=== PATIENT | male | born 1980 | race Caucasian/White ===

== ENCOUNTER 2016-06-18 11:15 | Emergency (ER) | payer OTHER ==
[2016-06-18 11:30] VITALS: BP 144/99; PULSE 121; TEMP 98.2; BMI 36.8
[2016-06-18] MEDS ORDERED: IBUPROFEN 600 MG TABLET (FP) PO ONE (12:35)
[2016-06-18 12:44] LABS: BASOPHIL 0.6 % (0-2.0); MCH 28.2 pg (25.7-33.7); MCHC 32.5 g/dl (32.0-35.9); MEAN CELL VOLUME 86.9 fl (80-96); MEAN PLT VOLUME 8.2 fl (7.5-11.1); NEUTROPHILS 57.9 % (42.8-82.8); PLATELET COUNT 265 K/MM3 (134-434); RDW 13.3 % (11.9-15.9); WHITE BLOOD COUNT 12.9 K/mm3 (4.0-10.0)
--- NOTE | 2016-06-18 12:45 | PDOC ---
History of Present Illness - General Chief Complaint: Pain Stated Complaint: HEADACHES, BODY ACHES Time Seen by Provider: 06/18/16 11:37 History Source: Patient Exam Limitations: No Limitations - History of Present Illness Initial Comments: 06/18/16 12:38 36 yr male with history of psoriasis presents with intermittent body aches, fevers, dry cough. Pt denies foreign travel, no history of surgery recent URI or abd pain. Pt has intermittent sore throats. 06/18/16 12:45 Timing/Duration: 1 week Severity: mild Past History - Past Medical History Allergies/Adverse Reactions: Allergies Allergy/AdvReac Type Severity Reaction Status Date / Time azithromycin [From Zithromax] Allergy Intermediate TROUBLE Verified 06/18/16 11: 30 BREATHING. Home Medications: Ambulatory Orders Penicillin V Potassium [Pen Vee K -] 500 mg PO BID #20 tablet 06/18/16 Other medical history: PSORIASIS - Surgical History Abdominal Surgery: Yes Appendectomy: Yes - Psycho/Social/Smoking Cessation Hx Anxiety: No Suicidal Ideation: No Smoking Status: Yes Smoking History: Never smoked Have you smoked in the past 12 months: No Number of Cigarettes Smoked Daily: 3 If you are a former smoker, when did you quit?: 2012 Information on smoking cessation initiated: No Hx Alcohol Use: No Substance Use Type: Alcohol Review of Systems - Review of Systems Able to Perform ROS?: Yes Is the patient limited Albanian proficient: No Constitutional: Yes: Symptoms Reported HEENTM: Yes: Symptoms Reported Respiratory: Yes: Symptoms reported *Physical Exam - Vital Signs Last Vital Signs Temp Pulse Resp BP Pulse Ox 98.2 F 121 H 18 144/99 98 06/18/16 11:26 06/18/16 11:26 06/18/16 11:26 06/18/16 11:26 06/18/16 11:26 - Physical Exam General Appearance: Yes: Nourished, Appropriately Dressed HEENT: positive: EOMI, FINA, Pharyngeal Erythema Neck: positive: Supple Respiratory/Chest: positive: Lungs Clear, Normal Breath Sounds. negative: Chest Tender Cardiovascular: positive: Regular Rhythm, Regular Rate Gastrointestinal/Abdominal: positive: Normal Bowel Sounds, Soft Musculoskeletal: positive: Normal Inspection Extremity: positive: Normal Capillary Refill, Normal Inspection, Normal Range of Motion Integumentary: positive: Normal Color, Dry, Warm Neurologic: positive: Fully Oriented, Alert, Normal Mood/Affect, Normal Response , Motor Strength 07/06 ED Treatment Course - LABORATORY CBC & Chemistry Diagram: 06/18/16 12:25 06/18/16 12:25 - RADIOLOGY Radiology Studies Ordered: Category Date Time Status CHEST PA & LAT [RAD] Stat Radiology 06/18/16 11:52 Completed Medical Decision Making - Medical Decision Making 06/18/16 12:51 cc: sore throat, fever, body aches on and off for 2 weeks will check strep, labs, CXR *DC/Admit/Observation/Transfer Diagnosis at time of Disposition: Strep pharyngitis - Prescriptions Prescriptions: Penicillin V Potassium [Pen Vee K -] 500 mg PO BID #20 tablet - Referrals Referrals: J Luis Barker MD [Primary Care Provider] - - Patient Instructions Additional Instructions: gargle with warm salt water 4-5 times a day take the PEnicillin as directed for 10 days take motrin as needed for fever or pain follow with your doctor to follow up on elevated liver enzymes throw out your toothbrush after treatment avoid sharing anything that can contain saliva, as this is how you spread strep
[2016-06-18] MEDS ORDERED: IBUPROFEN 400 MG TABLET (FP) PO ONE (12:48)
[2016-06-18 12:57] LABS: ALBUMIN 4.1 g/dl (3.4-5.0); ANION GAP 9 (8-16); BILIRUBIN,TOTAL 0.7 mg/dL (0.2-1.0); CALCIUM 9.7 mg/dL (8.5-10.1); CO2 28 mmol/L (21-32); COCKROFT - GAULT 118.43; CREATININE 1.3 mg/dL (0.7-1.3); GLUCOSE,RANDOM 118 mg/dL (74-106); SGOT/AST 87 U/L (15-37); SGPT/ALT 92 U/L (12-78); TOT PROT 9.1 g/dl (6.4-8.2)
[2016-06-18 12:58] LABS: ALK PHOS 67 U/L (45-117)
== END 2016-06-18 13:07 | disposition home or self-care (01) ==
LOC: JERFT 11:15
DX: J02.0 Streptococcal pharyngitis (principal); B95.0 Streptococcus, group A, as the cause of diseases classified elsewhere
CPT/HCPCS: 36415; 71020-TC; 80053; 85025; 87070; 87077; 87430; 99282-25

== ENCOUNTER 2016-06-18 20:22 | Emergency (ER) | payer OTHER ==
[2016-06-18 20:40] VITALS: BP 125/78; PULSE 105; TEMP 98.2; BMI 37.0
[2016-06-18] MEDS ORDERED: predniSONE 20 MG TABLET (UD) PO ONE (21:30)
[2016-06-18] MEDS ORDERED: RANITIDINE HCL 150 MG TABLET (FP) PO ONE (21:30)
[2016-06-18] MEDS ORDERED: diphenhydrAMINE HCL 50 MG CAPSULE PO ONE (21:30)
--- NOTE | 2016-06-18 21:30 | PDOC ---
History of Present Illness - General Chief Complaint: Allergic Reaction Stated Complaint: ALLERGIC REACTION Time Seen by Provider: 06/18/16 21:01 History Source: Patient - History of Present Illness Timing/Duration: 1-3 hours Associated Symptoms: denies: nausea/vomiting, shortness of breath Past History - Past Medical History Allergies/Adverse Reactions: Allergies Allergy/AdvReac Type Severity Reaction Status Date / Time azithromycin [From Zithromax] Allergy Intermediate TROUBLE Verified 06/18/16 11: 30 BREATHING. Penicillins Allergy Hives Verified 06/18/16 21:53 Home Medications: Ambulatory Orders NK [No Known Home Medication] 06/19/16 Other medical history: psoriasis - Surgical History Abdominal Surgery: Yes Appendectomy: Yes - Immunization History Immunization Up to Date: Yes - Psycho/Social/Smoking Cessation Hx Anxiety: No Suicidal Ideation: No Smoking Status: Yes Smoking History: Former smoker Have you smoked in the past 12 months: No Number of Cigarettes Smoked Daily: 3 If you are a former smoker, when did you quit?: 2009 Information on smoking cessation initiated: No Hx Alcohol Use: No Drug/Substance Use Hx: No Substance Use Type: Alcohol Review of Systems - Review of Systems Constitutional: No: Chills, Fever HEENTM: No: Throat Pain, Throat Swelling Respiratory: No: Shortness of Breath, Stridor, Wheezing Cardiac (ROS): No: Chest Pain *Physical Exam - Vital Signs Last Vital Signs Temp Pulse Resp BP Pulse Ox 98.2 F 105 H 20 125/78 97 06/18/16 20:34 06/18/16 20:34 06/18/16 20:34 06/18/16 20:34 06/18/16 20:34 - Physical Exam General Appearance: Yes: Appropriately Dressed. No: Apparent Distress HEENT: positive: Normal Voice, Other (no tongue swelling). negative: Scleral Icterus (R), Scleral Icterus (L) Neck: positive: Supple. negative: Lymphadenopathy (R), Lymphadenopathy (L) Respiratory/Chest: positive: Lungs Clear, Normal Breath Sounds. negative: Respiratory Distress, Stridor, Wheezing Cardiovascular: positive: Regular Rate, S1, S2 Extremity: positive: Normal Inspection Integumentary: positive: Dry, Warm Neurologic: positive: Fully Oriented, Alert, Normal Mood/Affect Medical Decision Making - Medical Decision Making 06/18/16 21:22 36 yo male, allergic to penicillin and azithromycin w/ anaphylaxis to penicillin in the past per pt, seen in ED several hrs ago and dx w/ strep throat , given 1 dose of penicillin in ED and sent home with rx for same and now presents with generalized pruritic rash that started 1-2 hours ago. Also complaining of his chest feeling "heavy" and that his voice sounds different as per his family. No tongue swelling, stridor, wheezing or shortness of breath. Patient states that he thought azithromycin was the same thing as penicillin and only reported azithromycin allergy to triage staff on earlier visit. Also did not tell ED provider about his penicillin allergy, specifically. Patient states he did fill the prescription for penicillin but did not start taking medications at home. Patient well-appearing and stable in ED with pinpoint, erythematous, papular rash diffusely. Oropharynx clear with no tongue swelling , stridor, wheezing. Will give allergy cocktail and transfer to main ED for several hours of observation given history. Alerted nursing staff to update pt' s records to reflect penicillin allergy *DC/Admit/Observation/Transfer Diagnosis at time of Disposition: Allergic reaction - Discharge Dispostion Disposition: HOME - Referrals Referrals: J Luis Barker MD [Primary Care Provider] - - Patient Instructions Additional Instructions: Please follow up with your PMD within the next 48 hours and if there is any change otherwise in symptoms, please return immediately to the ED.
[2016-06-18] MEDS ORDERED: predniSONE 20 MG TABLET (UD) ONE (21:44)
[2016-06-18] MEDS ORDERED: diphenhydrAMINE HCL 25 MG CAPSULE (FP) PO ONE (21:44)
[2016-06-18] MEDS ORDERED: RANITIDINE HCL 150 MG TABLET (FP) ONE (21:45)
--- NOTE | 2016-06-19 01:01 | PDOC ---
History of Present Illness - General Chief Complaint: Allergic Reaction Stated Complaint: ALLERGIC REACTION Time Seen by Provider: 06/18/16 21:01 Past History - Past Medical History Allergies/Adverse Reactions: Allergies Allergy/AdvReac Type Severity Reaction Status Date / Time azithromycin [From Zithromax] Allergy Intermediate TROUBLE Verified 06/18/16 11: 30 BREATHING. Penicillins Allergy Hives Verified 06/18/16 21:53 Home Medications: Ambulatory Orders Clindamycin HCl 300 mg PO TID #30 capsule 06/19/16 Famotidine [Pepcid] 40 mg PO DAILY #14 tablet 06/19/16 Prednisone 50 mg PO DAILY #25 tablet 06/19/16 Other medical history: psoriasis - Surgical History Abdominal Surgery: Yes Appendectomy: Yes - Immunization History Immunization Up to Date: Yes - Psycho/Social/Smoking Cessation Hx Anxiety: No Suicidal Ideation: No Smoking Status: Yes Smoking History: Former smoker Have you smoked in the past 12 months: No Number of Cigarettes Smoked Daily: 3 If you are a former smoker, when did you quit?: 2009 Information on smoking cessation initiated: No Hx Alcohol Use: No Drug/Substance Use Hx: No Substance Use Type: Alcohol *Physical Exam - Vital Signs Last Vital Signs Temp Pulse Resp BP Pulse Ox 98.2 F 105 H 20 125/78 97 06/18/16 20:34 06/18/16 20:34 06/18/16 20:34 06/18/16 20:34 06/18/16 20:34 ED Treatment Course - Medications Given in the ED: ED Medications Discontinued Medications Generic Name Dose Route Start Last Admin Trade Name Georgesq PRN Reason Stop Dose Admin Diphenhydramine HCl 50 mg 06/18/16 21:30 06/18/16 21:45 Benadryl - PO 06/18/16 21:31 50 mg ONCE ONE Administration Prednisone 60 mg 06/18/16 21:30 06/18/16 21:45 Deltasone - PO 06/18/16 21:31 60 mg ONCE ONE Administration Ranitidine HCl 150 mg 06/18/16 21:30 06/18/16 21:45 Zantac - PO 06/18/16 21:31 150 mg ONCE ONE Administration Medical Decision Making - Medical Decision Making 06/19/16 00:52 The patient is seen by the PA who evaluates him for allergic reaction to penicillin today. He has no current symptoms at this time. He has been observed for appreciable amount of time; will change antibiotic for his new dx of strep pharyngitis. Also will give zantac and prednisone. Instructed to follow up with the PMD within the next 48 hours. He will be encouraged as well to have follow up with bus repair supervisor. *DC/Admit/Observation/Transfer Diagnosis at time of Disposition: Allergic reaction Qualifiers: Encounter type: initial encounter Qualified Code(s): T78.40XA - Allergy, unspecified, initial encounter - Discharge Dispostion Disposition: HOME Condition at time of disposition: Good Admit: No Decision to Admit order Date/Time: 06/19/16 01:02 - Prescriptions Prescriptions: Clindamycin HCl 300 mg PO TID #30 capsule Famotidine [Pepcid] 40 mg PO DAILY #14 tablet Prednisone 50 mg PO DAILY #25 tablet - Patient Instructions Additional Instructions: Please follow up with your PMD within the next 48 hours and if there is any change otherwise in symptoms, please return immediately to the ED.
== END 2016-06-19 01:39 | disposition home or self-care (01) ==
LOC: JER 20:22 → JERFT 20:22 → JER 06-19 01:39
DX: L27.0 Generalized skin eruption due to drugs and medicaments taken internally (principal); T36.0X5A Adverse effect of penicillins, initial encounter; Y92.038 Other place in apartment as the place of occurrence of the external cause
CPT/HCPCS: 99282-25

== ENCOUNTER 2020-03-30 21:24 | Emergency (ER) | payer OTHER ==
[2020-03-30 22:18] VITALS: BP 129/85; PULSE 88; TEMP 99.4; BMI 39.5
[2020-03-30] MEDS ORDERED: ACETAMINOPHEN 1000 MG/100 ML VIAL (NON FORMULARY) IVPB ONE (23:07)
[2020-03-30] MEDS ORDERED: SODIUM CHLORIDE 1,000 ML IV STA (23:07)
[2020-03-30] MEDS ORDERED: METOCLOPRAMIDE HCL INJECTION 10 MG/2 ML VIAL IVPB ONE (23:07)
[2020-03-30] MEDS ORDERED: ACETAMINOPHEN INJECTION 100 ML IVPB ONE (23:40)
[2020-03-30] MEDS ORDERED: METOCLOPRAMIDE HCL INJECTION 10 MG/2 ML VIAL ONE (23:40)
[2020-03-30 23:48] LABS: PH,URINE 5.5 (5.0-8.0); URINE APPEARANCE CLEAR; URINE BILIRUBIN NEGATIVE (NEGATIVE); URINE COLOR YELLOW; URINE GLUCOSE (UA) NEGATIVE (NEGATIVE); URINE KETONE NEGATIVE (NEGATIVE); URINE LEUK ESTERASE NEGATIVE (NEGATIVE); URINE NITRITE NEGATIVE (NEGATIVE); URINE PROTEIN NEGATIVE (NEGATIVE); URINE UROBILINOGEN 0.2 mg/dL (0.2-1.0)
[2020-03-30 23:52] LABS: EOS % 3.4 % (0-4.5); HEMATOCRIT 45.5 % (35.4-49); HEMOGLOBIN 16.1 GM/dL (11.7-16.9); LYMPH % 34.7 % (8-40); MCH 30.9 pg (25.7-33.7); MCHC 35.4 g/dl (32.0-35.9); MEAN CELL VOLUME 87.3 fl (80-96); MEAN PLT VOLUME 9.2 fl (7.5-11.1); MONO % 7.5 % (3.8-10.2); NEUT % 53.4 % (42.8-82.8); PLATELET COUNT 234 K/MM3 (134-434); RBC 5.21 M/mm3 (4.00-5.60); RDW 13.4 % (11.9-15.9); WHITE BLOOD COUNT 8.5 K/mm3 (4.0-10.0)
[2020-03-30 23:57] LABS: INR 0.97 (0.83-1.09); PROTHROMBIN TIME (PATIENT) 11.8 SEC (9.7-13.0)
[2020-03-31 00:06] LABS: CHLORIDE 105 mmol/L (98-107); SODIUM 139 mmol/L (136-145)
[2020-03-31 00:08] LABS: ALBUMIN 3.9 g/dl (3.4-5.0); ANION GAP 4 MMOL/L (8-16); CO2 29 mmol/L (21-32)
[2020-03-31 00:09] LABS: GLUCOSE,RANDOM 130 mg/dL (74-106); LIPASE 92 U/L (73-393)
[2020-03-31 00:13] LABS: BILIRUBIN,TOTAL 0.6 mg/dL (0.2-1)
[2020-03-31 00:14] LABS: ALK PHOS 76 U/L (45-117)
[2020-03-31 02:21] LABS: BLOOD UREA NITROGEN 14.8 mg/dL (7-18); TOT PROT 7.6 g/dl (6.4-8.2)
== END 2020-03-31 04:01 ==
LOC: JER 21:24
PROC: 3E033NZ Introduction of Analgesics, Hypnotics, Sedatives into Peripheral Vein, Percutaneous Approach (ICD-10-PCS; principal; 2020-03-30)
PROC: 3E033GC Introduction of Other Therapeutic Substance into Peripheral Vein, Percutaneous Approach (ICD-10-PCS; 2020-03-30)
PROC: 3E0337Z Introduction of Electrolytic and Water Balance Substance into Peripheral Vein, Percutaneous Approach (ICD-10-PCS; 2020-03-30)
DX: R07.9 Chest pain, unspecified (principal)
CPT/HCPCS: 36415; 70450-TC; 71046-TC-FY; 80053; 81003; 82550; 82553; 83690; 84484; 85025; 85610; 93005; 93010; 99285-25; C9803; J0131; U0003

== ENCOUNTER 2022-08-11 23:52 | Inpatient (IN) | payer OTHER ==
[2022-08-12 00:20] VITALS: BMI 26.9
[2022-08-12] MEDS ORDERED: IBUPROFEN 400 MG TABLET (FP) PO PRN (00:49)
[2022-08-12] MEDS ORDERED: BENZONATATE 200 MG CAPSULE PO PRN (00:49)
[2022-08-12] MEDS ORDERED: LOPERAMIDE HCL 2 MG CAPSULE PO PRN (00:49)
[2022-08-12] MEDS ORDERED: IBUPROFEN 600 MG TABLET (FP) PO PRN (00:49)
[2022-08-12] MEDS ORDERED: NICOTINE 10 MG CARTRIDGE (INHALER) IH PRN (00:49)
[2022-08-12] MEDS ORDERED: guaiFENesin 600 MG TABLET.ER (FP) PO PRN (00:49)
[2022-08-12] MEDS ORDERED: hydrOXYzine PAMOATE 25 MG CAPSULE (FP) PO PRN (00:49)
[2022-08-12] MEDS ORDERED: ONDANSETRON *ODT* 4 MG TABLET SL PRN (00:49)
[2022-08-12] MEDS ORDERED: NICOTINE POLACRILEX 2 MG GUM BUC PRN (00:49)
[2022-08-12] MEDS ORDERED: ACETAMINOPHEN 325 MG TABLET (FP) PO PRN (00:49)
[2022-08-12] MEDS ORDERED: MAG HYDROX/AL HYDROX/SIMETH 30 ML UNIT-DOSE CUP PO PRN (00:49)
[2022-08-12] MEDS ORDERED: POLYETHYLENE GLYCOL (HEALTHYLAX) 3350 17 GM PACKET PO PRN (00:49)
[2022-08-12] MEDS ORDERED: BENZOCAINE/MENTHOL (CHLORASEPTIC ) LOZENGE MM PRN (00:49)
[2022-08-12] MEDS ORDERED: MAGNESIUM HYDROX 2400MG/30ML ORAL SUSPENSION 30 ML CUP PO PRN (00:49)
[2022-08-12] MEDS ORDERED: BISMUTH SUBSALICYLATE 524 MG/30 ML PO PRN (00:49)
[2022-08-12] MEDS ORDERED: DICYCLOMINE HCL 10 MG CAPSULE PO PRN (00:49)
[2022-08-12] MEDS ORDERED: P-EPHED 60MG/TRIPROLIDI 2.5MG TABLET PO PRN (00:49)
[2022-08-12] MEDS ORDERED: diazePAM 5 MG TABLET PO ONE (00:51)
[2022-08-12] MEDS: diazePAM 5 MG TABLET PO SCH ×4 (05:55→22:28)
[2022-08-12] MEDS: METHOCARBAMOL 500 MG TABLET PO PRN ×2 (10:47→22:28)
[2022-08-12] MEDS: PRENATAL VITAMINS W/ FOLIC ACID TABLET (FP) PO SCH (10:47)
[2022-08-12] MEDS: THIAMINE HCL 100 MG TABLET (FP) PO SCH (22:29)
[2022-08-12] MEDS: MELATONIN 5 MG TABLETS PO PRN (22:29)
[2022-08-13] MEDS: diazePAM 5 MG TABLET PO SCH ×3 (05:36→22:22)
[2022-08-13 10:22] LABS: HEMATOCRIT 43.1 % (35.4-49); HEMOGLOBIN 14.4 GM/dL (11.7-16.9); MCH 29.2 pg (25.7-33.7); MCHC 33.6 g/dl (32.0-35.9); MEAN CELL VOLUME 87.1 fl (80-96); MEAN PLT VOLUME 7.7 fl (7.5-11.1); PLATELET COUNT 193 10^3/uL (134-434); RBC 4.94 M/mm3 (4.00-5.60); RDW 14.9 % (11.9-15.9); WHITE BLOOD COUNT 8.8 K/mm3 (4.0-10.0)
[2022-08-13 10:31] LABS: BLOOD UREA NITROGEN 11.3 mg/dL (7-18); CALCIUM 8.8 mg/dL (8.5-10.1)
[2022-08-13 10:32] LABS: ALBUMIN 3.2 g/dl (3.4-5.0)
[2022-08-13] MEDS: PRENATAL VITAMINS W/ FOLIC ACID TABLET (FP) PO SCH (10:33)
[2022-08-13 10:34] LABS: CREATININE 0.8 mg/dL (0.55-1.3)
[2022-08-13] MEDS: diazePAM 5 MG TABLET PO PRN (10:34)
[2022-08-13 10:36] LABS: BILIRUBIN,TOTAL 1.2 mg/dL (0.2-1); TOT PROT 6.6 g/dl (6.4-8.2)
[2022-08-13] MEDS: THIAMINE HCL 100 MG TABLET (FP) PO SCH (22:22)
[2022-08-13] MEDS: MELATONIN 5 MG TABLETS PO PRN (22:23)
[2022-08-14] MEDS: diazePAM 5 MG TABLET PO SCH ×2 (05:34→17:21)
[2022-08-14] MEDS: PRENATAL VITAMINS W/ FOLIC ACID TABLET (FP) PO SCH (10:17)
[2022-08-14] MEDS: diazePAM 5 MG TABLET PO PRN ×2 (10:18→21:39)
[2022-08-14] MEDS: MELATONIN 5 MG TABLETS PO PRN (21:36)
[2022-08-14] MEDS: THIAMINE HCL 100 MG TABLET (FP) PO SCH (21:39)
[2022-08-14] MEDS: METHOCARBAMOL 500 MG TABLET PO PRN (21:39)
[2022-08-14] MEDS ORDERED: LIDOCAINE 5% TOPICAL PATCH TP ONE (23:15)
[2022-08-15] MEDS ORDERED: diazePAM 5 MG TABLET PO ONE (06:00)
[2022-08-15 09:26] VITALS: BP 111/54; PULSE 96; RESP 17; TEMP 97.3
[2022-08-15] MEDS: PRENATAL VITAMINS W/ FOLIC ACID TABLET (FP) PO SCH (10:41)
[2022-08-15] MEDS ORDERED: LIDOCAINE PATCH REMOVAL MC ONE (11:15)
== END 2022-08-15 10:30 | disposition home or self-care (01) | DRG 351 ==
LOC: YASAS 23:52 → Y6N 08-12 01:11
PROVIDERS: ADMIT Allergy & Immunology; ATTEND Surgery
PROC: HZ2ZZZZ Detoxification Services for Substance Abuse Treatment (ICD-10-PCS; principal; 2022-08-12)
DX: T14.90XA Injury, unspecified, initial encounter (principal); F10.230 Alcohol dependence with withdrawal, uncomplicated; F14.20 Cocaine dependence, uncomplicated; F17.210 Nicotine dependence, cigarettes, uncomplicated; T14.8XXA Other injury of unspecified body region, initial encounter; V49.9XXA Car occupant (driver) (passenger) injured in unspecified traffic accident, initial encounter; Y92.414 Local residential or business street as the place of occurrence of the external cause
CPT/HCPCS: 36415; 80053; 85027; 86780; 87635

== ENCOUNTER 2022-09-11 11:45 | Inpatient (IN) | payer OTHER ==
[2022-09-11 12:05] VITALS: BMI 26.4
[2022-09-11] MEDS ORDERED: ONDANSETRON *ODT* 4 MG TABLET SL PRN (13:28)
[2022-09-11] MEDS ORDERED: BENZOCAINE/MENTHOL (CHLORASEPTIC ) LOZENGE MM PRN (13:28)
[2022-09-11] MEDS ORDERED: POLYETHYLENE GLYCOL (HEALTHYLAX) 3350 17 GM PACKET PO PRN (13:28)
[2022-09-11] MEDS ORDERED: MAGNESIUM HYDROX 2400MG/30ML ORAL SUSPENSION 30 ML CUP PO PRN (13:28)
[2022-09-11] MEDS ORDERED: BISMUTH SUBSALICYLATE 524 MG/30 ML PO PRN (13:28)
[2022-09-11] MEDS ORDERED: MAG HYDROX/AL HYDROX/SIMETH 30 ML UNIT-DOSE CUP PO PRN (13:28)
[2022-09-11] MEDS ORDERED: IBUPROFEN 400 MG TABLET (FP) PO PRN (13:28)
[2022-09-11] MEDS ORDERED: guaiFENesin 600 MG TABLET.ER (FP) PO PRN (13:28)
[2022-09-11] MEDS ORDERED: NALOXONE HCL 0.4 MG/ML VIAL IM PRN (13:28)
[2022-09-11] MEDS ORDERED: NALOXONE HCL (KLOXXADO) 8 MG SPRAY NS PRN (13:28)
[2022-09-11] MEDS ORDERED: ACETAMINOPHEN 325 MG TABLET (FP) PO PRN (13:28)
[2022-09-11] MEDS ORDERED: DICYCLOMINE HCL 10 MG CAPSULE PO PRN (13:28)
[2022-09-11] MEDS ORDERED: IBUPROFEN 600 MG TABLET (FP) PO PRN (13:28)
[2022-09-11] MEDS ORDERED: METHOCARBAMOL 500 MG TABLET PO PRN (13:28)
[2022-09-11] MEDS ORDERED: LOPERAMIDE HCL 2 MG CAPSULE PO PRN (13:28)
[2022-09-11] MEDS ORDERED: BENZONATATE 200 MG CAPSULE PO PRN (13:28)
[2022-09-11] MEDS ORDERED: NICOTINE POLACRILEX 2 MG GUM BUC PRN (13:28)
[2022-09-11] MEDS ORDERED: PRENATAL VITAMINS W/ FOLIC ACID TABLET (FP) PO SCH (13:30)
[2022-09-11] MEDS ORDERED: chlordiazePOXIDE HCL 25 MG CAPSULE PO PRN (13:33)
[2022-09-11] MEDS ORDERED: PRENATAL VITAMINS W/ FOLIC ACID TABLET (FP) PO ONE (14:25)
[2022-09-11] MEDS ORDERED: chlordiazePOXIDE HCL 25 MG CAPSULE PO SCH (17:00)
[2022-09-11 17:31] VITALS: BP 132/84; PULSE 98; RESP 18; TEMP 97.1
[2022-09-11] MEDS ORDERED: MELATONIN 5 MG TABLETS PO SCH (22:00)
[2022-09-11] MEDS ORDERED: THIAMINE HCL 100 MG TABLET (FP) PO SCH (22:00)
[2022-09-12] MEDS ORDERED: NICOTINE 14 MG/24 HOURS TOPICAL PATCH TD SCH (10:00)
[2022-09-13] MEDS ORDERED: chlordiazePOXIDE HCL 25 MG CAPSULE PO SCH (05:00)
[2022-09-14] MEDS ORDERED: chlordiazePOXIDE HCL 10 MG CAPSULE PO PRN
[2022-09-14] MEDS ORDERED: chlordiazePOXIDE HCL 10 MG CAPSULE PO SCH (05:00)
[2022-09-15] MEDS ORDERED: chlordiazePOXIDE HCL 10 MG CAPSULE PO SCH (05:00)
[2022-09-16] MEDS ORDERED: chlordiazePOXIDE HCL 10 MG CAPSULE PO ONE (05:00)
== END 2022-09-11 16:35 | disposition left against medical advice (07) | DRG 770 ==
LOC: YASAS 11:45 → Y6N 14:06
PROVIDERS: ADMIT Allergy & Immunology; ATTEND Surgery
PROC: HZ2ZZZZ Detoxification Services for Substance Abuse Treatment (ICD-10-PCS; principal; 2022-09-11)
DX: F10.230 Alcohol dependence with withdrawal, uncomplicated (principal); F17.210 Nicotine dependence, cigarettes, uncomplicated; L40.9 Psoriasis, unspecified; Z88.0 Allergy status to penicillin; Z88.1 Allergy status to other antibiotic agents
CPT/HCPCS: 87635; 87811

== ENCOUNTER 2022-10-08 22:04 | Emergency (ER) | payer OTHER ==
[2022-10-08 22:11] VITALS: BMI 27.3
[2022-10-08] MEDS ORDERED: PANTOPRAZOLE SODIUM 40 MG VIAL IVPUSH ONE (23:02)
[2022-10-08] MEDS ORDERED: ACETAMINOPHEN 1000 MG/100 ML BAG IVPB ONE (23:02)
[2022-10-08] MEDS ORDERED: PANTOPRAZOLE SODIUM 40 MG VIAL ONE (23:06)
[2022-10-08] MEDS ORDERED: ACETAMINOPHEN INJECTION 100 ML IVPB ONE (23:06)
[2022-10-08 23:12] LABS: EOS % 3.8 % (0-4.5); HEMATOCRIT 44.8 % (35.4-49); HEMOGLOBIN 14.7 GM/dL (11.7-16.9); LYMPH % 39.9 % (8-40); MCH 28.6 pg (25.7-33.7); MCHC 32.8 g/dl (32.0-35.9); MEAN PLT VOLUME 7.8 fl (7.5-11.1); MONO % 6.3 % (3.8-10.2); PLATELET COUNT 263 10^3/uL (134-434); RBC 5.15 M/mm3 (4.00-5.60); RDW 14.2 % (11.9-15.9)
[2022-10-08 23:19] LABS: PH,URINE 6.5 (5.0-8.0); URINE APPEARANCE CLEAR; URINE BILIRUBIN NEGATIVE (NEGATIVE); URINE COLOR YELLOW; URINE GLUCOSE (UA) NEGATIVE (NEGATIVE); URINE KETONE NEGATIVE (NEGATIVE); URINE LEUK ESTERASE NEGATIVE (NEGATIVE); URINE NITRITE NEGATIVE (NEGATIVE); URINE PROTEIN NEGATIVE (NEGATIVE)
[2022-10-08 23:19] LABS: PROTHROMBIN TIME (PATIENT) 11.6 SEC (9.7-13.0)
[2022-10-08 23:35] LABS: POTASSIUM 3.7 mmol/L (3.5-5.1)
[2022-10-08 23:36] LABS: CALCIUM 8.8 mg/dL (8.5-10.1)
[2022-10-08 23:37] LABS: ALBUMIN 3.7 g/dl (3.4-5.0); BLOOD UREA NITROGEN 14.2 mg/dL (7-18); MAGNESIUM 2.1 mg/dL (1.8-2.4)
[2022-10-08 23:40] LABS: CREATININE 0.9 mg/dL (0.55-1.3)
[2022-10-08 23:42] LABS: BILIRUBIN,TOTAL 0.3 mg/dL (0.2-1); TOT PROT 7.4 g/dl (6.4-8.2)
[2022-10-09 05:34] VITALS: BP 125/69; PULSE 81; RESP 17; TEMP 97.8
[2022-10-09] MEDS ORDERED: ACETAMINOPHEN 1000 MG/100 ML BAG IVPB ONE (05:42)
== END 2022-10-09 07:24 | disposition left against medical advice (07) ==
LOC: JER 22:04
PROC: 3E033NZ Introduction of Analgesics, Hypnotics, Sedatives into Peripheral Vein, Percutaneous Approach (ICD-10-PCS; principal; 2022-10-08)
PROC: 3E033GC Introduction of Other Therapeutic Substance into Peripheral Vein, Percutaneous Approach (ICD-10-PCS; 2022-10-08)
PROC: 3E033NZ Introduction of Analgesics, Hypnotics, Sedatives into Peripheral Vein, Percutaneous Approach (ICD-10-PCS; 2022-10-09)
DX: R07.9 Chest pain, unspecified (principal); R10.32 Left lower quadrant pain; K92.1 Melena; R19.7 Diarrhea, unspecified
CPT/HCPCS: 36415; 71046-TC-FY; 74177-TC; 80053; 81003; 82272; 83735; 84484; 85025; 85610; 85730; 86850; 86900; 86901; 87086; 93005; 93010; 99285-25

== ENCOUNTER 2022-12-08 18:09 | Emergency (ER) | payer OTHER ==
[2022-12-08 19:10] VITALS: BP 133/88; PULSE 86; RESP 18; TEMP 98; BMI 27.3
[2022-12-08 19:31] LABS: HEMOGLOBIN 16.7 GM/dL (11.7-16.9); MCH 29.3 pg (25.7-33.7); MCHC 34.1 g/dl (32.0-35.9); MEAN CELL VOLUME 85.9 fl (80-96); MEAN PLT VOLUME 7.4 fl (7.5-11.1); PLATELET COUNT 282 10^3/uL (134-434); RDW 14.4 % (11.9-15.9); WHITE BLOOD COUNT 9.3 K/mm3 (4.0-10.0)
[2022-12-08 19:52] LABS: CALCIUM 8.7 mg/dL (8.5-10.1)
[2022-12-08 19:53] LABS: ALBUMIN 3.9 g/dl (3.4-5.0); BLOOD UREA NITROGEN 6.6 mg/dL (7-18)
[2022-12-08 19:56] LABS: CREATININE 0.9 mg/dL (0.55-1.3)
[2022-12-08 19:58] LABS: BILIRUBIN,TOTAL 0.5 mg/dL (0.2-1)
[2022-12-08 21:02] LABS: ANISOCYTOSIS 2+; MACROCYTOSIS 2+
== END 2022-12-08 20:23 | disposition home or self-care (01) ==
LOC: JER 18:09
DX: R06.02 Shortness of breath (principal); R07.89 Other chest pain; F10.90 Alcohol use, unspecified, uncomplicated; Z20.822 Contact with and (suspected) exposure to COVID-19
CPT/HCPCS: 0241U-QW; 36415; 71045-TC-FY; 80053; 80307; 84484; 85025; 93005; 93010; 99285-25

== ENCOUNTER 2023-01-28 12:41 | Inpatient (IN) | payer OTHER ==
[2023-01-28 13:10] VITALS: BMI 29.7
[2023-01-28] MEDS ORDERED: ACETAMINOPHEN 325 MG TABLET (FP) PO PRN (16:55)
[2023-01-28] MEDS ORDERED: BENZONATATE 200 MG CAPSULE PO PRN (16:55)
[2023-01-28] MEDS ORDERED: guaiFENesin 600 MG TABLET.ER (FP) PO PRN (16:55)
[2023-01-28] MEDS ORDERED: LOPERAMIDE HCL 2 MG CAPSULE PO PRN (16:55)
[2023-01-28] MEDS ORDERED: ONDANSETRON *ODT* 4 MG TABLET SL PRN (16:55)
[2023-01-28] MEDS ORDERED: DICYCLOMINE HCL 10 MG CAPSULE PO PRN (16:55)
[2023-01-28] MEDS ORDERED: MAG HYDROX/AL HYDROX/SIMETH 30 ML UNIT-DOSE CUP PO PRN (16:55)
[2023-01-28] MEDS ORDERED: POLYETHYLENE GLYCOL (HEALTHYLAX) 3350 17 GM PACKET PO PRN (16:55)
[2023-01-28] MEDS ORDERED: IBUPROFEN 400 MG TABLET (FP) PO PRN (16:55)
[2023-01-28] MEDS ORDERED: BENZOCAINE/MENTHOL (CHLORASEPTIC ) LOZENGE MM PRN (16:55)
[2023-01-28] MEDS ORDERED: NALOXONE HCL 0.4 MG/ML VIAL IM PRN (16:55)
[2023-01-28] MEDS ORDERED: MAGNESIUM HYDROX 2400MG/30ML ORAL SUSPENSION 30 ML CUP PO PRN (16:55)
[2023-01-28] MEDS ORDERED: NALOXONE HCL (KLOXXADO) 8 MG SPRAY NS PRN (16:55)
[2023-01-28] MEDS ORDERED: BISMUTH SUBSALICYLATE 524 MG/30 ML PO PRN (16:55)
[2023-01-28] MEDS: hydrOXYzine PAMOATE 25 MG CAPSULE (FP) PO PRN (18:31)
[2023-01-28] MEDS: METHOCARBAMOL 500 MG TABLET PO PRN (18:31)
[2023-01-28] MEDS: chlordiazePOXIDE HCL 25 MG CAPSULE PO PRN (18:32)
[2023-01-28] MEDS ORDERED: MELATONIN 5 MG TABLETS PO SCH (22:00)
[2023-01-28] MEDS: chlordiazePOXIDE HCL 25 MG CAPSULE PO SCH (22:35)
[2023-01-28] MEDS: THIAMINE HCL 100 MG TABLET (FP) PO SCH (22:35)
[2023-01-29] MEDS: chlordiazePOXIDE HCL 25 MG CAPSULE PO SCH ×4 (05:23→22:19)
[2023-01-29] MEDS: METHOCARBAMOL 500 MG TABLET PO PRN (08:44)
[2023-01-29] MEDS: hydrOXYzine PAMOATE 25 MG CAPSULE (FP) PO PRN (08:44)
[2023-01-29] MEDS ORDERED: BETAMETHASONE DIPROPIONATE TD SCH (10:00)
[2023-01-29] MEDS ORDERED: NICOTINE POLACRILEX 2 MG GUM BUC PRN (10:25)
[2023-01-29] MEDS: PRENATAL VITAMINS W/ FOLIC ACID TABLET (FP) PO SCH (10:26)
[2023-01-29] MEDS: NICOTINE 14 MG/24 HOURS TOPICAL PATCH TD SCH (11:01)
[2023-01-29 11:11] LABS: HEMATOCRIT 43.8 % (35.4-49); HEMOGLOBIN 14.3 GM/dL (11.7-16.9); MCHC 32.6 g/dl (32.0-35.9); MEAN CELL VOLUME 88.8 fl (80-96); MEAN PLT VOLUME 7.8 fl (7.5-11.1); PLATELET COUNT 235 10^3/uL (134-434); RBC 4.93 M/mm3 (4.00-5.60); RDW 14.1 % (11.9-15.9); WHITE BLOOD COUNT 6.6 K/mm3 (4.0-10.0)
[2023-01-29 11:15] LABS: CHLORIDE 105 mmol/L (98-107); POTASSIUM 4.1 mmol/L (3.5-5.1); SODIUM 142 mmol/L (136-145)
[2023-01-29 11:21] LABS: CALCIUM 8.4 mg/dL (8.5-10.1)
[2023-01-29 11:22] LABS: ALBUMIN 3.3 g/dl (3.4-5.0); ANION GAP 7 mmol/L (4-13); CO2 29 mmol/L (21-32); GLUCOSE,RANDOM 86 mg/dL (74-106)
[2023-01-29 11:24] LABS: SGOT/AST 24 U/L (15-37)
[2023-01-29 11:25] LABS: BILIRUBIN,TOTAL 0.7 mg/dL (0.2-1); SGPT/ALT 10 U/L (13-61)
[2023-01-29 11:26] LABS: TOT PROT 6.7 g/dl (6.4-8.2)
[2023-01-29 11:27] LABS: ALK PHOS 47 U/L (45-117)
[2023-01-29] MEDS: TRIAMCINOLONE ACET 0.1% CREAM 15 GM TUBE TP SCH (22:18)
[2023-01-29] MEDS: THIAMINE HCL 100 MG TABLET (FP) PO SCH (22:19)
[2023-01-29] MEDS: MELATONIN 5 MG TABLETS PO SCH (22:19)
[2023-01-30] MEDS: chlordiazePOXIDE HCL 25 MG CAPSULE PO SCH ×4 (05:20→22:09)
[2023-01-30] MEDS: hydrOXYzine PAMOATE 25 MG CAPSULE (FP) PO PRN ×2 (09:17→22:08)
[2023-01-30] MEDS: TRIAMCINOLONE ACET 0.1% CREAM 15 GM TUBE TP SCH (10:10)
[2023-01-30] MEDS: IBUPROFEN 600 MG TABLET (FP) PO PRN ×2 (10:11→17:08)
[2023-01-30] MEDS: METHOCARBAMOL 500 MG TABLET PO PRN ×2 (10:11→22:08)
[2023-01-30] MEDS: NICOTINE 14 MG/24 HOURS TOPICAL PATCH TD SCH (10:11)
[2023-01-30] MEDS: PRENATAL VITAMINS W/ FOLIC ACID TABLET (FP) PO SCH (10:13)
[2023-01-30] MEDS: chlordiazePOXIDE HCL 25 MG CAPSULE PO PRN ×2 (14:35→20:29)
[2023-01-30] MEDS: MELATONIN 5 MG TABLETS PO SCH (22:08)
[2023-01-30] MEDS: THIAMINE HCL 100 MG TABLET (FP) PO SCH (22:08)
[2023-01-30] MEDS: TRIAMCINOLONE ACET 0.1% OINT 80 GM TUBE TP SCH (22:09)
[2023-01-31] MEDS ORDERED: chlordiazePOXIDE HCL 10 MG CAPSULE PO PRN
[2023-01-31] MEDS: chlordiazePOXIDE HCL 10 MG CAPSULE PO SCH ×4 (05:30→22:11)
[2023-01-31] MEDS: TRIAMCINOLONE ACET 0.1% OINT 80 GM TUBE TP SCH ×2 (10:10→22:11)
[2023-01-31] MEDS: METHOCARBAMOL 500 MG TABLET PO PRN ×2 (10:10→19:42)
[2023-01-31] MEDS: PRENATAL VITAMINS W/ FOLIC ACID TABLET (FP) PO SCH (10:10)
[2023-01-31] MEDS: hydrOXYzine PAMOATE 25 MG CAPSULE (FP) PO PRN (10:10)
[2023-01-31] MEDS: NICOTINE 14 MG/24 HOURS TOPICAL PATCH TD SCH (10:13)
[2023-01-31] MEDS: THIAMINE HCL 100 MG TABLET (FP) PO SCH (22:11)
[2023-01-31] MEDS: MELATONIN 5 MG TABLETS PO SCH (22:11)
[2023-01-31] MEDS: IBUPROFEN 600 MG TABLET (FP) PO PRN (22:14)
[2023-02-01] MEDS: hydrOXYzine PAMOATE 25 MG CAPSULE (FP) PO PRN ×2 (01:44→10:17)
[2023-02-01] MEDS ORDERED: chlordiazePOXIDE HCL 10 MG CAPSULE PO SCH (05:00)
[2023-02-01 06:11] VITALS: RESP 16
[2023-02-01 09:34] VITALS: BP 112/69; PULSE 81; TEMP 98.3
[2023-02-01] MEDS: PRENATAL VITAMINS W/ FOLIC ACID TABLET (FP) PO SCH (10:13)
[2023-02-01] MEDS: NICOTINE 14 MG/24 HOURS TOPICAL PATCH TD SCH (10:13)
[2023-02-01] MEDS: TRIAMCINOLONE ACET 0.1% OINT 80 GM TUBE TP SCH (10:15)
[2023-02-01] MEDS: METHOCARBAMOL 500 MG TABLET PO PRN (12:29)
[2023-02-02] MEDS ORDERED: chlordiazePOXIDE HCL 10 MG CAPSULE PO ONE (05:00)
== END 2023-02-01 14:35 | disposition other institution (70) | DRG 775 ==
LOC: YASAS 12:41 → Y6N 17:35
PROVIDERS: ADMIT Allergy & Immunology; ATTEND Surgery
PROC: HZ2ZZZZ Detoxification Services for Substance Abuse Treatment (ICD-10-PCS; principal; 2023-01-28)
DX: F10.230 Alcohol dependence with withdrawal, uncomplicated (principal); F10.282 Alcohol dependence with alcohol-induced sleep disorder; F10.24 Alcohol dependence with alcohol-induced mood disorder; F41.9 Anxiety disorder, unspecified; L40.9 Psoriasis, unspecified; Z87.891 Personal history of nicotine dependence; Z88.0 Allergy status to penicillin; Z88.1 Allergy status to other antibiotic agents
CPT/HCPCS: 36415; 80053; 80307; 85027; 86780; 87635; 87811

== ENCOUNTER 2023-06-28 00:01 | Emergency (ER) | payer OTHER ==
[2023-06-28 00:10] VITALS: BP 123/85; PULSE 81; RESP 20; TEMP 98.9; BMI 28.1
[2023-06-28] MEDS ORDERED: CLINDAMYCIN HCL 150 MG CAPSULE (FP) ONE (00:56)
[2023-06-28] MEDS: CLINDAMYCIN HCL 150 MG CAPSULE (FP) PO ONE (00:58)
[2023-06-28 01:01] LABS: BASO % 0.6 % (0-2.0); EOS % 3.6 % (0-4.5); HEMATOCRIT 43.3 % (35.4-49); HEMOGLOBIN 14.7 GM/dL (11.7-16.9); LYMPH % 38.4 % (8-40); MCH 29.7 pg (25.7-33.7); MCHC 33.9 g/dl (32.0-35.9); MEAN CELL VOLUME 87.6 fl (80-96); MEAN PLT VOLUME 7.3 fl (7.5-11.1); NEUT % 47.4 % (42.8-82.8); PLATELET COUNT 307 10^3/uL (134-434); RBC 4.94 M/mm3 (4.00-5.60); RDW 13.6 % (11.9-15.9); WHITE BLOOD COUNT 8.1 K/mm3 (4.0-10.0)
[2023-06-28 01:25] LABS: POTASSIUM 3.5 mmol/L (3.5-5.1)
[2023-06-28 01:27] LABS: ALBUMIN 3.3 g/dl (3.4-5.0); BLOOD UREA NITROGEN 9.1 mg/dL (7-18)
[2023-06-28 01:30] LABS: CREATININE 0.7 mg/dL (0.55-1.3)
[2023-06-28 01:32] LABS: BILIRUBIN,TOTAL 0.4 mg/dL (0.2-1); TOT PROT 7.5 g/dl (6.4-8.2)
[2023-06-28] MEDS ORDERED: POTASSIUM CHLORIDE TABS 20 MEQ TABLET.ER (FP) PO ONE (01:36)
[2023-06-28] MEDS: POTASSIUM CHLORIDE TABS 20 MEQ TABLET.ER (FP) PO ONE (01:39)
[2023-06-28] MEDS ORDERED: FLUCONAZOLE 100 MG TABLET (UD) ONE (01:52)
[2023-06-28] MEDS: FLUCONAZOLE 100 MG TABLET (UD) PO ONE (01:54)
== END 2023-06-28 02:25 | disposition home or self-care (01) ==
LOC: JER 00:01
DX: L73.9 Follicular disorder, unspecified (principal); L40.4 Guttate psoriasis; B35.0 Tinea barbae and tinea capitis; R50.9 Fever, unspecified; Z20.822 Contact with and (suspected) exposure to COVID-19
CPT/HCPCS: 0241U-QW; 36415; 80053; 85025; 99283-25